=== PATIENT | male | born 1990 | race Caucasian/White ===

== ENCOUNTER 2024-03-08 20:21 | Emergency (ER) | payer OTHER, SELFPAY ==
[2024-03-08 20:23] VITALS: BP 115/76
--- NOTE | 2024-03-08 20:34 | ED.GENMED ---
History of Present Illness
General
Chief Complaint: Skin Problem
Time Seen by Provider: 03/08/24 20:33
History of Present Illness
History of Present Illness:
HPI: The patient was out in the sun on Saturday. He developed sunburn and today the pain has been intermittently worse. He has tried multiple different yxum-[id number]-[id number] topical medications without any improvement. He did not know what else to do so
he came in here for further evaluation. He is also taking NSAIDs.
EXAM:
GENERAL: Well appearing in minimal distress
HEENT: Moist oral mucosa
NEUROLOGIC: Excellent strength all extremities, no coordination deficits
PSYCHIATRIC: Appropriate mental status, normal insight and judgement
EXTREMITIES: Nontender, no edema, moves all extremities equally
SKIN: There is extensive erythema noted to the back with no blister formation
TIME OF INITIAL ENCOUNTER: 9 PM
NUMBER AND COMPLEXITY OF PROBLEMS ADDRESSED AT THE ENCOUNTER
� Chronic conditions affecting care: No significant past medical history
� Acute Exacerbation and/or Progression of Chronic Illness: This is an acute problem
� Differential Diagnosis includes: Sunburn, dermatitis, photosensitivity, cellulitis unlikely
AMOUNT AND/OR COMPLEXITY OF DATA TO BE REVIEWED AND ANALYZED
� I performed an independent evaluation of and my interpretation is:
EKG:
CT:
X-rays:
Laboratory Studies:
Other:
� Review of other/old records: The patient was seen here 2018 with a laceration of the left forearm; he also went to the OR 2011 Dr. Moyer for his knee
� Clinical information was obtained by an independent historian: I spoke to the mother at bedside
� Prescriptions/Medications Considered but not given: Considered Silvadene however I do not think this will help his pain
� Further testing considered but not performed: No indication for lab work at this time
RISK OF COMPLICATIONS AND/OR MORBIDITY OR MORTALITY OF PATIENT MANAGEMENT
� Social determinants of health affecting care: Lives at home
� Discussion with other providers:
� Escalation of care including admission/observation vs risk of discharge considered: The patient has failed conservative measures including NSAIDs and topical analgesia. He states the pain is rather severe. Will give very
limited course of narcotic analgesia and also try steroids as there is a significant component of pruritus.
Past History
Past History
ED Past Medical History: None
ED Past Surgical History: None
Social History
Tobacco: Non-smoker
Personal: Single
Living: with family
Employment: Employed
Phy Exam
Physical Exam
Physical Exam:
See HPI
Course
Orders/Labs/Results
Orders:
Orders
03/08/24 21:02
Oxycodone/Acetaminophen [Percocet 5/325] 1 tablet PO NOW STA
Prednisone [Deltasone] 50 mg PO NOW STA
Vital Signs
Initial and Last Documented VS:
Initial Vital Signs
Temp Pulse Resp BP Pulse Ox
97.5 F 65 19 115/76 99
03/08/24 20:23 03/08/24 20:23 03/08/24 20:23 03/08/24 20:23 03/08/24 20:23
Last Documented Vital Signs
Temp Pulse Resp BP Pulse Ox
97.5 F 65 19 115/76 99
03/08/24 20:23 03/08/24 20:23 03/08/24 20:23 03/08/24 20:23 03/08/24 20:23
*Critical Care Note
Total Time (30-74mins, 75-104mins- exclusive of procedures): Not Applicable
ED Attending Note
-
Portions of this chart may have been created with voice recognition software.� Occasional wrong word or��sound alike� substitutions may have occurred due to the inherent limitations of voice recognition software.
Discharge Plan
Departure
Patient Disposition: Home (Routine Discharge)
Date of Disposition: 03/08/24
Time of Disposition: 21:02
Patient with high blood pressure during this ER visit?: Yes
Discharge Problem:
Sunburn
Instructions: Sunburn (DC)
Prescriptions:
New
oxycodone-acetaminophen [Percocet] 5-325 mg tablet
1 tab PO Q8H PRN (Reason: Pain) Qty: 8 0RF
prednisone 50 mg tablet
50 mg PO DAILY Qty: 4 0RF
Referrals:
UNKNOWN - PT DOES,NOT KNOW [Family Provider] -
Activity Restrictions/Additional Instructions:
Try to limit use of narcotic analgesia. I sent a prescription for prednisone to your pharmacy to help decrease inflammation and pain especially since you have associated itchiness. Return here if worse. Follow-up your primary care doctor. Next
dose of prednisone (steroid) tomorrow morning.
Interventions
Interventions:
*Risk Screen - Suicide Last Done: 03/08/24 20:25
*General Assessment Last Done: 03/08/24 20:25
*Neglect/Abuse Screening Last Done: 03/08/24 20:25
*ED COVID-19 Vaccine History Last Done: 03/08/24 20:25
ED-Skin Assessment Last Done: 03/08/24 20:52
Discharge Date and Time
Print Language: LITHUANIAN
[2024-03-08] MEDS: PERCOCET 5/325 1 TABLET PO (21:09)
[2024-03-08] MEDS: DELTASONE 50 MG PO (21:09)
== END 2024-03-08 21:13 | disposition home or self-care (01) ==
LOC: EMR 20:21
PROVIDERS: EMERGENCY PHYSICIAN Emergency Medicine
DX: L55.9 Sunburn, unspecified (principal)
CPT/HCPCS: 99282